=== PATIENT | male | born 1935 | race Caucasian/White ===

== ENCOUNTER 2020-10-11 12:46 | Emergency (ER) | payer MEDICARE | END 2020-10-11 13:07 | disposition left against medical advice (07) | LOC: ER1 12:46 | DX: Z53.21 Procedure and treatment not carried out due to patient leaving prior to being seen by health care provider (principal) ==

== ENCOUNTER 2020-12-25 18:18 | Inpatient (IN) | payer MEDICARE ==
[~2020-12-25] VITALS: Ht 167.6 cm; Wt 57.4 kg
[2020-12-25 19:29] LABS: HEMOGLOBIN 13.1 gm/dl (14.0-17.5); RED BLOOD COUNT 4.13 M/UL (4.20-5.50); WHITE BLOOD COUNT 8.6 K/UL (4.5-11.0)
[2020-12-25 20:09] LABS: BUN/CREATININE RATIO 24 (0-10)
[2020-12-25] MEDS ORDERED: LEVOTHYROXINE25 MCG PO (23:00)
[2020-12-25] MEDS ORDERED: AMLODIPINE BESY10 MG PO (23:00)
[2020-12-25] MEDS ORDERED: HYDRALAZINE HCL50 MG PO (23:01)
[2020-12-25] MEDS ORDERED: LISINOPRIL10 MG PO (23:01)
[2020-12-25] MEDS ORDERED: CETIRIZINE HCL10 MG PO (23:02)
[2020-12-25] MEDS ORDERED: ASPIRIN EC81 MG PO (23:03)
[2020-12-25] MEDS ORDERED: FAMOTIDINE20 MG PO (23:03)
[2020-12-25] MEDS ORDERED: ATORVASTATIN CA40 MG PO (23:04)
[2020-12-25] MEDS ORDERED: ELIQUIS2.5 MG PO (23:04)
[2020-12-25] MEDS ORDERED: MELATONIN10 MG PO (23:06)
[2020-12-26 05:58] LABS: HEMOGLOBIN 12.4 gm/dl (14.0-17.5); RED BLOOD COUNT 3.99 M/UL (4.20-5.50); WHITE BLOOD COUNT 7.2 K/UL (4.5-11.0)
[2020-12-26 07:42] LABS: BUN/CREATININE RATIO 19 (0-10)
--- NOTE | 2020-12-26 16:48 | NUR ---
12/26/20 10:15 PT RETURNED FORM SURGERY V/S T 97.4 P 113 R 20 BP 177/73 PT ALERT X 2. GAG REFLEX INTACT SURGICAL INCISION TO RIGHT GROIN AREA WITH DERMABOND, INCISION INTACT NO DRAINAGE OR BLEEDING NOTED. Francisco GARCÍA RN
[2020-12-27 04:27] LABS: HEMOGLOBIN 11.3 gm/dl (14.0-17.5); RED BLOOD COUNT 3.61 M/UL (4.20-5.50)
[2020-12-27 04:31] LABS: WHITE BLOOD COUNT 13.9 K/UL (4.5-11.0)
[2020-12-27 04:42] LABS: BUN/CREATININE RATIO 20 (0-10)
[2020-12-27 09:08] LABS: HEMOGLOBIN 12.1 gm/dl (14.0-17.5); RED BLOOD COUNT 3.84 M/UL (4.20-5.50); WHITE BLOOD COUNT 13.6 K/UL (4.5-11.0)
[2020-12-28 05:18] LABS: HEMOGLOBIN 11.4 gm/dl (14.0-17.5); RED BLOOD COUNT 3.63 M/UL (4.20-5.50)
[2020-12-28 05:40] LABS: BUN/CREATININE RATIO 16 (0-10)
--- NOTE | 2020-12-28 11:20 | NUR ---
Patient o2 saturation 87% on room air.
[2020-12-28] MEDS ORDERED: ACETAMINOPHEN-1 EAC1 PO (12:29)
[2020-12-28] MEDS ORDERED: AUGMENTIN 875-1 EACH PO (12:31)
[2020-12-28] MEDS ORDERED: DOXYCYCLINE HY100 MG PO (12:31)
== END 2020-12-28 13:19 | disposition home or self-care (01) | DRG 350 ==
LOC: ER1 18:18 → CDU 21:34 → M/S 21:34
PROVIDERS: Emergency Medicine; Internal Medicine; Internal Medicine Pulmonary Disease; Surgery; ADMIT Internal Medicine
PROC: 0YQ50ZZ Repair Right Inguinal Region, Open Approach (ICD-10-PCS; principal; 2020-12-26 11:15)
DX: K40.30 Unilateral inguinal hernia, with obstruction, without gangrene, not specified as recurrent (principal); J69.0 Pneumonitis due to inhalation of food and vomit; J96.01 Acute respiratory failure with hypoxia; E43 Unspecified severe protein-calorie malnutrition; I69.354 Hemiplegia and hemiparesis following cerebral infarction affecting left non-dominant side; F05 Delirium due to known physiological condition; Z20.822 Contact with and (suspected) exposure to COVID-19; R45.1 Restlessness and agitation; E11.9 Type 2 diabetes mellitus without complications; I10 Essential (primary) hypertension; E78.5 Hyperlipidemia, unspecified; E03.9 Hypothyroidism, unspecified; K21.9 Gastro-esophageal reflux disease without esophagitis; F41.9 Anxiety disorder, unspecified; F32.9 Major depressive disorder, single episode, unspecified; Z79.01 Long term (current) use of anticoagulants; Z79.82 Long term (current) use of aspirin; Z87.891 Personal history of nicotine dependence; Z90.3 Acquired absence of stomach [part of]; Z79.890 Hormone replacement therapy; Z79.899 Other long term (current) drug therapy; Z88.2 Allergy status to sulfonamides; Z88.8 Allergy status to other drugs, medicaments and biological substances; Z68.20 Body mass index [BMI] 20.0-20.9, adult; Z66 Do not resuscitate
CPT/HCPCS: 36415; 71045; 80048; 80053; 80202; 81001; 82550; 82553; 82962; 83605; 83735; 83880; 84100; 84439; 84443; 84484; 85025; 85027; 86140; 87081; 87086; 93005; 96374; 96375; 96376; 99285; C1781; C9113; J0690; J1100; J1170; J2001; J2185; J2270; J2370; J2405; J2704; J3010; J3370; J7070; J7120; Q9967; U0002

== ENCOUNTER 2021-01-08 12:59 | Emergency (ER) | payer MEDICARE ==
[~2021-01-08 12:59] MED LIST: ACETAMINOPHEN-1 EAC1 PO; AMLODIPINE BESY10 MG PO; ASPIRIN EC81 MG PO; ATORVASTATIN CA40 MG PO; AUGMENTIN 875-1 EACH PO; CETIRIZINE HCL10 MG PO; DOXYCYCLINE HY100 MG PO; ELIQUIS2.5 MG PO; FAMOTIDINE20 MG PO; HYDRALAZINE HCL50 MG PO; LEVOTHYROXINE25 MCG PO; LISINOPRIL10 MG PO; MELATONIN10 MG PO
[2021-01-08 15:07] LABS: HEMOGLOBIN 11.6 gm/dl (14.0-17.5); RED BLOOD COUNT 3.67 M/UL (4.20-5.50); WHITE BLOOD COUNT 14.7 K/UL (4.5-11.0)
[2021-01-08 15:27] LABS: BUN/CREATININE RATIO 17 (0-10)
[2021-01-08 15:35] LABS: ADENOVIRUS F 40/41 Not Detected (Negative); ASTROVIRUS Not Detected (Negative); CAMPYLOBACTER Not Detected (Negative); CLOSTRIDIUM DIFFICILE TOX A/B Not Detected (Negative); CRYPTOSPORIDIUM Not Detected (Negative); E.COLI 0157 Not Detected (Negative); ENTAMOEBA HISTOLYTICA Not Detected (Negative); ENTEROAGGREGATIVE E.COLI (EAEC Not Detected (Negative); ENTEROPATHOGENIC E.COLI (EPEC) Not Detected (Negative); ENTEROTOXIGENIC E.COLI (ETEC) Not Detected (Negative); GIARDIA LAMBLIA Not Detected (Negative); NOROVIRUS GI/GII Not Detected (Negative); PLESIOMONAS SHIGELLOIDES Not Detected (Negative); ROTOVIRUS A Not Detected (Negative); SALMONELLA Not Detected (Negative); SAPOVIRUS Not Detected (Negative); SHIG/ENTEROINVAS.ECOLI (EIEC) Not Detected (Negative); SHIGA-LIK TOX.PRO.E.COLI (STEC Not Detected (Negative); VIBRIO Not Detected (Negative); VIBRIO CHOLERAE Not Detected (Negative); YERSINIA ENTEROCOLITICA Not Detected (Negative)
[2021-01-08] MEDS ORDERED: ZOFRAN4 MG PO (17:30)
== END 2021-01-08 17:40 | disposition home or self-care (01) ==
LOC: ER1 12:59
PROVIDERS: Preventive Medicine Occupational Medicine
DX: K52.9 Noninfective gastroenteritis and colitis, unspecified (principal); E86.0 Dehydration; J44.9 Chronic obstructive pulmonary disease, unspecified; I10 Essential (primary) hypertension; E11.9 Type 2 diabetes mellitus without complications; F17.210 Nicotine dependence, cigarettes, uncomplicated; Z20.822 Contact with and (suspected) exposure to COVID-19
CPT/HCPCS: 0240U; 71045; 80053; 81001; 82550; 82553; 83605; 83690; 83874; 84484; 85025; 85652; 86140; 87077; 87086; 87186; 87507; 96374; 99284; J2405; J7030; Q9967